=== PATIENT | male | born 1970 | race Caucasian/White ===

== ENCOUNTER 2016-03-02 18:02 | Emergency (ER) | payer BC ==
[2016-03-02 19:14] VITALS: BP 130/83
--- NOTE | 2016-03-02 19:30 | UC ---
Respiratory Complaint HPI - HPI Summary HPI Summary: The patient comes in today for: 1. Left sinus pain: Onset: one week. Palliative/provocative: Nothing makes his symptoms better or worse. Quality: Pressure Region: Maxillary sinus. Severity: 3/10 Time: Constant. Associated symptoms: Rhinitis: Yellow material. Fever: Not checked. Upper tooth pain: Present on left. Cough: Present "a little bit." Productive of yellow material. Previous treatment: Nothing. Last antibiotics: end december. * - History of Current Complaint Chief Complaint: UCRespiratory Stated Complaint: SINUS PAIN Time Seen by Provider: 03/02/16 19:24 Hx Obtained From: Patient - Allergies/Home Medications Allergies/Adverse Reactions: Allergies Allergy/AdvReac Type Severity Reaction Status Date / Time No Known Allergies Allergy Verified 03/02/16 19:14 PMH/Surg Hx/FS Hx/Imm Hx Previously Healthy: No Endocrine History Of: Denies: Diabetes, Thyroid Disease, Hyperthyroidism, Hypothyroidism, Dyslipidemia Cardiovascular History Of: Denies: Cardiac Disorders, Hypertension, Pacemaker/ICD, Myocardial Infarction , Congestive Heart Failure, Atrial Fibrillation, Deep Vein Thrombosis, Bleeding Disorders Respiratory History Of: Reports: Asthma - He denies asthma, but he used inhaler for bronchitis. Denies: COPD, Bronchitis, Pneumonia, Pulmonary Embolism GI/ History Of: Denies: Gastroesophageal Reflux, Ulcer, Gastrointestinal Bleed, Gall Bladder Disease, Kidney Stones, Diverticulitis, Renal Disease, Urosepsis Neurological History Of: Denies: TIA, CVA, Dementia, Seizures, Migraine Psychological History Of: Denies: Anxiety, Depression, Bipolar Disorder, Schizophrenia, Post Traumatic Stress Disorder Cancer History Of: Denies: Lung Cancer, Colorectal Cancer, Breast Cancer, Cervical Cancer Other History Of: Negative For: HIV, Hepatitis B, Hepatitis C, Anticoagulant Therapy - Surgical History Surgical History: Yes Surgery Procedure, Year, and Place: testicular torsion repair, RADIOKERATOTOMY - Family History Known Family History: Positive: Cardiac Disease Negative: Hypertension, Diabetes - Social History Occupation: Employed Full-time Alcohol Use: Rare Substance Use Type: None Smoking Status (MU): Never Smoked Tobacco - Immunization History Most Recent Influenza Vaccination: 11/13/15 Review of Systems Constitutional: Negative Skin: Negative Eyes: Negative ENT: Nasal Discharge Respiratory: Cough Cardiovascular: Negative Gastrointestinal: Negative Genitourinary: Negative All Other Systems Reviewed And Are Negative: Yes Physical Exam Triage Information Reviewed: Yes Appearance: Well-Appearing, No Pain Distress, Well-Nourished Vital Signs: Initial Vital Signs Temp 99.1 F 03/02/16 19:08 Pulse 84 03/02/16 19:08 Resp 18 03/02/16 19:08 BP 130/83 03/02/16 19:08 Pulse Ox 96 03/02/16 19:08 Vital Signs Reviewed: Yes Eyes: Positive: Conjunctiva Clear. Negative: Discharge ENT: Positive: Hearing grossly normal, Other: - Positive left maxillary sinus discomfort with palpation.. Negative: Pharyngeal erythema, Nasal congestion, Nasal drainage, TM bulging, TM dull, TM red, Tonsillar swelling, Tonsillar exudate Dental: Negative: Gross Decay/Caries @, Dental Fracture @ Neck: Positive: Supple, Nontender, No Lymphadenopathy. Negative: Nuchal Rigidity Respiratory: Positive: Chest non-tender, Lungs clear, No respiratory distress, No accessory muscle use. Negative: Crackles, Wheezing Cardiovascular: Positive: RRR, No Murmur Abdomen Description: Positive: Nontender, No Organomegaly, Soft. Negative: Distended, Guarding Musculoskeletal: Positive: Strength Intact, ROM Intact Neurological: Positive: Alert, Muscle Tone Normal Psychological: Positive: Age Appropriate Behavior, Consolable Skin: Negative: rashes, breakdown UC Diagnostic Evaluation - Laboratory O2 Sat by Pulse Oximetry: 96 Respiratory Course/Dx - Differential Dx/Diagnosis Differential Diagnosis/HQI/PQRI: Aspiration, Bronchitis, Laryngitis, Sinusitis Provider Diagnoses: Sinusitis, bacterial, left maxillary. Discharge - Discharge Plan Condition: Stable Disposition: HOME Patient Education Materials: Sinusitis (ED) Referrals: Dino Overton MD [Primary Care Provider] - 1 Week (The patient comes in today for: 1. Onset: Palliative/provocative: Quality: Region: Severity: Time: Associated symptoms: *)
[2016-03-02] MEDS ORDERED: Amoxicillin/Clavulanate TAB* 875 MG PO ONE ×2 (19:37→20:10)
[2016-03-02] MEDS ORDERED: Amoxicillin/Clavulanate TAB* 875 MG ONE (19:59)
== END 2016-03-02 19:55 | disposition home or self-care (01) ==
LOC: UCEAST 18:02
DX: J32.0 Chronic maxillary sinusitis (principal)
CPT/HCPCS: 99213; A9270-GY; G0463

== ENCOUNTER 2016-04-10 12:38 | Emergency (ER) | payer BC ==
[2016-04-10 12:57] VITALS: BP 121/69
--- NOTE | 2016-04-10 13:28 | UC ---
Headache HPI - HPI Summary HPI Summary: 45 y/o male c/o ongoing intermittent maxillary sinus congestion which radiates into the B/L upper jaw. Congestion will fully resolve, alternate sides of the face, no pattern to presentation regarding time of day. Patient denies headache but states he will experience intermittent B/L behind the eye pressure. Denies feeling nauseated, light or sound sensitivity. Was seen by ENT who, "said I was fine, nothing significantly wrong with me". Patient was treated with Augmentin 875 mg BID x 10days, ABX completed, patient stated he had "possible" improvement after completing the ABX but is unsure. - History Of Current Complaint Chief Complaint: UCRespiratory Stated Complaint: SINUS COMPLAINT Time Seen by Provider: 04/10/16 13:07 Hx Obtained From: Patient Onset/Duration: Gradual Onset Onset Of Symptoms: Gradual Initially Headache Was: Mild Currently Pain Is: Mild Timing: Intermittent, Lasting: - Frequency duration varies Character: Pressure Location of Headache: Other: - Behind the eyes Allevating Factors: Nothing Associated Signs And Symptoms: Positive: Negative - Risk Factors SAH Risk Factors: Negative Meningitis Risk Factors: Negative SDH Risk Factors: Negative Temporal Arteritis Risk Factors: Negative - Allergies/Home Medications Allergies/Adverse Reactions: Allergies Allergy/AdvReac Type Severity Reaction Status Date / Time No Known Allergies Allergy Verified 04/10/16 12:57 PMH/Surg Hx/FS Hx/Imm Hx Previously Healthy: Yes Endocrine History Of: Denies: Diabetes, Thyroid Disease, Hyperthyroidism, Hypothyroidism, Dyslipidemia Cardiovascular History Of: Denies: Cardiac Disorders, Hypertension, Pacemaker/ICD, Myocardial Infarction , Congestive Heart Failure, Atrial Fibrillation, Deep Vein Thrombosis, Bleeding Disorders Respiratory History Of: Denies: COPD, Bronchitis, Pneumonia, Pulmonary Embolism Comment Only: Asthma - He denies asthma, but he used inhaler for bronchitis. GI/ History Of: Denies: Gastroesophageal Reflux, Ulcer, Gastrointestinal Bleed, Gall Bladder Disease, Kidney Stones, Diverticulitis, Renal Disease, Urosepsis Neurological History Of: Denies: TIA, CVA, Dementia, Seizures, Migraine Psychological History Of: Denies: Anxiety, Depression, Bipolar Disorder, Schizophrenia, Post Traumatic Stress Disorder Cancer History Of: Denies: Lung Cancer, Colorectal Cancer, Breast Cancer, Cervical Cancer Other History Of: Negative For: HIV, Hepatitis B, Hepatitis C, Anticoagulant Therapy - Surgical History Surgical History: Yes Surgery Procedure, Year, and Place: testicular torsion repair, RADIOKERATOTOMY - Family History Known Family History: Positive: Cardiac Disease Negative: Hypertension, Diabetes - Social History Occupation: Employed Full-time Lives: With Family Alcohol Use: Rare Substance Use Type: None Smoking Status (MU): Never Smoked Tobacco - Immunization History Most Recent Influenza Vaccination: 11/13/15 Review of Systems Constitutional: Negative Skin: Negative Eyes: Drainage, Other - Bilateral itchiness in the eyes ENT: Nasal Discharge, Other - Maxillary sinus congestion Respiratory: Negative Cardiovascular: Negative Gastrointestinal: Negative Genitourinary: Negative Motor: Negative Neurovascular: Negative Musculoskeletal: Negative Neurological: Negative Psychological: Negative All Other Systems Reviewed And Are Negative: Yes Physical Exam Triage Information Reviewed: Yes Appearance: Well-Appearing, No Pain Distress Vital Signs: Initial Vital Signs Temp 98.8 F 04/10/16 12:53 Pulse 84 04/10/16 12:53 Resp 18 04/10/16 12:53 BP 121/69 04/10/16 12:53 Pulse Ox 94 04/10/16 12:53 Vital Signs Reviewed: Yes Eye Exam: Normal Eyes: Positive: Other: - Cobblestone appearance in the sclera ENT: Positive: Normal ENT inspection, Hearing grossly normal, Pharynx normal, Nasal congestion, TMs normal, Other: - Maxillary sinus congestion Dental Exam: Normal Dental: Positive: Percussion Tenderness @ - Upper lateral jaw tenderness to palpation Neck exam: Normal Neck: Positive: Supple, Nontender, No Lymphadenopathy Respiratory Exam: Normal Respiratory: Positive: Chest non-tender, Lungs clear, Normal breath sounds, No respiratory distress, No accessory muscle use Cardiovascular Exam: Normal Cardiovascular: Positive: RRR, No Murmur, Pulses Normal Abdominal Exam: Normal Abdomen Description: Positive: Nontender, No Organomegaly, Soft Bowel Sounds: Positive: Present Musculoskeletal Exam: Normal Musculoskeletal: Positive: Strength Intact, ROM Intact Neurological Exam: Normal Neurological: Positive: Alert, Muscle Tone Normal Psychological Exam: Normal Skin Exam: Normal Headache Course/Dx - Differential Dx/Diagnosis Provider Diagnoses: Non bacterial sinusitis. Allergic rhinitis Discharge - Discharge Plan Condition: Stable Disposition: HOME Prescriptions: Cetirizine* [ZyrTEC*] 10 mg PO DAILY #30 tab Fluticasone HFA 110 mcg(NF) [Flovent HFA 110 mcg(NF)] 2 puff INH BID #1 mdi Naproxen Sodium 500 mg PO BID #20 tab Patient Education Materials: Allergic Rhinitis (ED) Forms: *Work Release Referrals: [facility] [Provider Group] Dino Overton MD [Primary Care Provider] - If Needed () Additional Instructions: Keep your appointment with [facility]. As discussed see PCP sooner if symptoms persist. If you can not get into seeing your PCP, you may return her for further evaluation of symptoms.
== END 2016-04-10 14:15 | disposition home or self-care (01) ==
LOC: UCEAST 12:38
DX: J32.9 Chronic sinusitis, unspecified (principal); J30.9 Allergic rhinitis, unspecified
CPT/HCPCS: 99212; G0463

== ENCOUNTER 2017-03-19 19:04 | Emergency (ER) | payer BC ==
[2017-03-19 20:01] VITALS: BP 125/86
--- NOTE | 2017-03-19 21:12 | RAD ---
HISTORY: Right rib tenderness, fall COMPARISONS: None VIEWS: 5, Frontal view of the chest with frontal and oblique views of the right hemithorax. FINDINGS: There is no displaced rib fracture or pneumothorax. The visualized lungs are clear. IMPRESSION: NO DISPLACED RIB FRACTURE OR PNEUMOTHORAX.
--- NOTE | 2017-03-19 22:01 | UC ---
Ander Rouse Julia, scribed for Deon Cuevas MD on 03/19/17 at 2046 . Minor Trauma HPI - HPI Summary HPI Summary: This patient is a 46 year old M presenting to [facility] with a chief complaint of R lower rib pain worsening today s/p fall forward while ice skating, Patient denies difficulty breathing, abdominal pain, urinary symptoms, and bowel symptoms. The patient rates the pain 3/10 in severity. Symptoms aggravated by movement. - History of Current Complaint Chief Complaint: UCTrauma Stated Complaint: RIB INJURY Time Seen by Provider: 03/19/17 20:38 Hx Obtained From: Patient Onset/Duration: Lasting Days, Still Present Onset Of Pain: Immediate Severity Initially: Mild Severity Currently: Moderate Pain Intensity: 3 Pain Scale Used: 0-10 Numeric Mechanism Of Injury: Fall From A Standing Position - ice skating Aggravating Factor(s): Movement Alleviating Factor(s): Nothing - Allergies/Home Medications Allergies/Adverse Reactions: Allergies Allergy/AdvReac Type Severity Reaction Status Date / Time No Known Allergies Allergy Verified 03/19/17 20:02 Home Medications: Home Medications NK [No Home Medications Reported] 03/19/17 [History Confirmed 03/19/17] PMH/Surg Hx/FS Hx/Imm Hx Other History Of: Negative For: HIV, Hepatitis B, Hepatitis C, Anticoagulant Therapy - Surgical History Surgical History: Yes Surgery Procedure, Year, and Place: testicular torsion repair, RADIOKERATOTOMY - Family History Known Family History: Positive: Cardiac Disease Negative: Hypertension, Diabetes - Social History Alcohol Use: Rare Substance Use Type: None Smoking Status (MU): Never Smoked Tobacco - Immunization History Most Recent Influenza Vaccination: 11/13/15 Review of Systems Respiratory: Negative Gastrointestinal: Negative Genitourinary: Negative Musculoskeletal: Myalgia - R rib pain All Other Systems Reviewed And Are Negative: Yes Physical Exam Triage Information Reviewed: Yes Vital Signs: Initial Vital Signs Temp 98.7 F 03/19/17 19:57 Pulse 68 03/19/17 19:57 Resp 18 03/19/17 19:57 BP 125/86 03/19/17 19:57 Pulse Ox 98 03/19/17 19:57 Vital Signs Reviewed: Yes - Additional Comments General: well-appearing, no pain distress Skin: warm, color reflects adequate perfusion, dry Head: normal Eyes: EOMI, ALIA ENT: normal Neck: supple, nontender Respiratory: CTA, breath sounds present bilaterally Cardiovascular: RRR Abdomen: soft, R lowever anterior and lateral rib tenderness without erythema or rash Bowel: present Musculoskeletal: normal, strength/ROM intact Neurological: normal, sensory/motor intact, A&O x3 Psychological: affect/mood appropriate Diagnostics - Radiology CXR Radiology Interpretation Completed By: Radiologist - NO DISPLACED RIB FRACTURE OR PNEUMOTHORAX. ED Physician has reviewed this report. Minor Trauma Course/Dx - Course Course Of Treatment: DISCUSSED RESULTS OF X-RAYS WITH PATIENT. HE REQUESTED LYME TESTING HE HAS HAD MAY TICK BITES. - Differential Dx/Diagnosis Provider Diagnoses: RIGHT RIB CONTUSION. TICK BITES Discharge - Discharge Plan Condition: Stable Disposition: HOME Patient Education Materials: Rib Contusion (ED) Referrals: LORENZO Damon [Primary Care Provider] - Additional Instructions: FOLLOW UP WITH YOUR DOCTOR. YOU HAD A LYME SCREEN DRAWN TODAY. GET RECHECKED FOR ANY WORSENING OF YOUR CONDITION OR QUESTIONS OR CONCERNS. The documentation as recorded by the Ander cain Julia accurately reflects the service I personally performed and the decisions made by me, Deon Cuevas MD.
--- NOTE | 2017-03-22 16:26 | UC ---
- Progress Note Progress Note: call patient and advise Lyme Serology is positive there is additional testing for confirmation that had not been returned yet---Please start Doxycycline 100 mg po BID for 28 days and assure patient has a follow up appointment made
== END 2017-03-19 22:13 | disposition home or self-care (01) ==
LOC: UCEAST 19:04
DX: S20.211A Contusion of right front wall of thorax, initial encounter (principal); V00.211A Fall from ice-skates, initial encounter; Y93.21 Activity, ice skating; Y92.9 Unspecified place or not applicable; A69.20 Lyme disease, unspecified
CPT/HCPCS: 86617; 86618; 99211; G0463